=== PATIENT | female | born 1980 | race Caucasian/White ===

== ENCOUNTER 2016-12-02 11:57 | Emergency (ER) | payer MEDICAID ==
[~2016-12-02] VITALS: Ht 162.6 cm; Wt 80.0 kg
[2016-12-02 12:46] VITALS: BP 122/70
== END 2016-12-02 14:00 | disposition home or self-care (01) ==
LOC: ER 13:14
DX: H72.92 Unspecified perforation of tympanic membrane, left ear (principal); Z88.6 Allergy status to analgesic agent; Z98.890 Other specified postprocedural states; Z87.891 Personal history of nicotine dependence
CPT/HCPCS: 99283